=== PATIENT | male | born 1990 | race Caucasian/White ===

== ENCOUNTER 2021-01-27 22:11 | Emergency (ER) | payer OTHER, MEDICARE ==
[~2021-01-27] VITALS: Ht 180.3 cm; Wt 108.9 kg
[~2021-01-27 22:11] MED LIST: LEXAPRO 10 MG T10 M1 PO; NORCO 5-325 TA1 EACH PO
[2021-01-27] MEDS ORDERED: MELATONIN10 M1 PO (22:25)
[2021-01-27] MEDS ORDERED: LATUDA20 MG PO (22:25)
[2021-01-27] MEDS ORDERED: OMEPRAZOLE 20 M20 M1 PO (22:25)
[2021-01-27] MEDS ORDERED: NAPROSYN500 M1 PO (22:26)
[2021-01-27] MEDS ORDERED: CLONAZEPAM 0.50.5 M1 PO (22:31)
[2021-01-27 22:54] LABS: URINE BILIRUBIN NEGATIVE (Negative); URINE BLOOD NEGATIVE (Negative); URINE CLARITY CLEAR; URINE COLOR YELLOW; URINE GLUCOSE-RANDOM NEGATIVE (Negative); URINE KETONES 1+ (Negative); URINE LEUKOCYTES NEGATIVE (Negative); URINE NITRITE NEGATIVE (Negative); URINE PROTEIN NEGATIVE (Negative); URINE SPECIFIC GRAVITY <= 1.005 (1.005-1.030); URINE UROBILINOGEN 0.2 E.U./dl (0.2-1.0)
[2021-01-27 23:01] LABS: AMP/METHAMP Negative (Negative); BARBITURATES Negative (Negative); BENZODIAZEPINES Negative (Negative); COCAINE Negative (Negative); METHADONE Negative (Negative); OPIATES Negative (Negative); PCP Negative (Negative); THC Negative (Negative)
[2021-01-27 23:51] LABS: HEMATOCRIT 46.8 % (42.0-52.0); HEMOGLOBIN 16.6 gm/dL (14.0-18.0); MCH 33.3 pg (26.0-34.0); MCHC 35.5 g/dL (28.0-37.0); MCV 93.8 fL (80.0-100.0); MPV 6.9 fl. (7.2-11.1); RBC 4.99 mil/uL (4.50-6.00); RDW-CV 15.3 % (10.5-14.5); WBC 8.7 thou/uL (4.0-11.0)
[2021-01-28 00:08] LABS: CALCIUM 9.2 mg/dL (8.5-10.1); CREATININE 1.3 mg/dL (0.6-1.3)
[2021-01-28 00:13] LABS: ACETAMINOPHEN < 2 ug/mL (10-30); ALBUMIN 3.9 g/dL (3.4-5.0); ALCOHOL < 10 mg/dL (<10); SALICYLATE < 2.8 mg/dL (2.8-20.0); TOTAL BILIRUBIN 1.2 mg/dL (<0.1-1.0); TOTAL PROTEIN 7.1 g/dL (6.4-8.2)
[2021-01-28 00:14] LABS: POTASSIUM 2.9 mmol/L (3.5-5.1)
[2021-01-28] MEDS ORDERED: XANAX 0.5 MG0.5 M1 PO (00:34)
[2021-01-28 01:06] VITALS: BP 159/97
== END 2021-01-28 01:06 | disposition home or self-care (01) ==
LOC: M.ERS 22:11
PROVIDERS: Personal Emergency Response Attendant
DX: R44.0 Auditory hallucinations (principal); F41.9 Anxiety disorder, unspecified; F43.10 Post-traumatic stress disorder, unspecified; F31.9 Bipolar disorder, unspecified; F17.210 Nicotine dependence, cigarettes, uncomplicated; Z79.899 Other long term (current) drug therapy; Z88.8 Allergy status to other drugs, medicaments and biological substances